=== PATIENT | male | born 1945 | race Two or more races ===

== ENCOUNTER 2018-03-29 11:12 | Emergency (ER) | payer OTHER ==
[~2018-03-29] VITALS: Ht 177.8 cm; Wt 79.4 kg
[~2018-03-29 11:12] MED LIST: CRESTOR10 MG
[2018-03-29] MEDS ORDERED: BETAGAN10 ML (11:50)
== END 2018-03-29 14:26 | disposition home or self-care (01) ==
LOC: ER 11:12
DX: R41.0 Disorientation, unspecified (principal)

== ENCOUNTER 2018-12-03 07:48 | Outpatient (CLI) | payer OTHER ==
[~2018-12-03 07:48] MED LIST changes: +BETAGAN10 ML
== END 2018-12-03 08:00 | disposition home or self-care (01) ==
LOC: NUCLEAR 07:48
DX: I20.9 Angina pectoris, unspecified (principal)
CPT/HCPCS: 78452; 93017; A9500

== ENCOUNTER 2019-02-07 13:42 | Emergency (ER) | payer OTHER ==
[~2019-02-07] VITALS: Ht 175.3 cm; Wt 80.7 kg
[2019-02-07] MEDS ORDERED: ZESTRIL5 MG PO (14:18)
== END 2019-02-07 18:25 | disposition home or self-care (01) ==
LOC: ER 13:42
DX: K61.1 Rectal abscess (principal)

== ENCOUNTER 2022-04-29 08:51 | Outpatient (CLI) | payer OTHER ==
[~2022-04-29 08:51] MED LIST changes: +ZESTRIL5 MG PO
== END 2022-04-29 08:52 | disposition home or self-care (01) ==
LOC: NUCLEAR 08:51
PROVIDERS: ATTEND Internal Medicine Cardiovascular Disease
DX: I65.23 Occlusion and stenosis of bilateral carotid arteries (principal)

== ENCOUNTER 2022-08-18 12:01 | Outpatient (CLI) | payer OTHER | END 2022-08-18 12:06 | disposition home or self-care (01) | LOC: RAD 12:01 | PROVIDERS: ATTEND Internal Medicine Cardiovascular Disease | DX: M19.042 Primary osteoarthritis, left hand (principal); R97.20 Elevated prostate specific antigen [PSA] ==

== ENCOUNTER 2025-01-27 13:22 | Outpatient (CLI) | payer OTHER | END 2025-01-27 14:14 | disposition home or self-care (01) | LOC: LAB 13:22 → EDBD 13:22 → LAB 14:14 | PROVIDERS: ATTEND Urology | DX: R97.20 Elevated prostate specific antigen [PSA] (principal) ==